=== PATIENT | female | born 1955 | race Caucasian/White ===

== ENCOUNTER → 2018-10-15 | Outpatient (CLI) | payer OTHER | LOC: CAT 10:29 | DX: Z13.6 Encounter for screening for cardiovascular disorders (principal); E78.00 Pure hypercholesterolemia, unspecified; I25.10 Atherosclerotic heart disease of native coronary artery without angina pectoris ==

== ENCOUNTER → 2021-04-06 | Outpatient (CLI) | payer BC, OTHER | LOC: SJCVCIMAG 03-30 15:23 | PROVIDERS: ATTEND Nuclear Medicine Nuclear Cardiology | DX: N26.1 Atrophy of kidney (terminal) (principal); I10 Essential (primary) hypertension ==